=== PATIENT | male | born 1960 | race Caucasian/White ===

== ENCOUNTER 2019-07-30 10:04 | Day surgery (SDC) | payer OTHER ==
[2019-07-26 08:39] VITALS: BMI 28.1
[2019-07-30] MEDS ORDERED: PROPOFOL 20 ML ONE ×2 (11:50→13:12)
[2019-07-30] MEDS ORDERED: MIDAZOLAM HCL 2 MG/2 ML SINGLE DOSE VIAL ONE ×2 (11:50)
[2019-07-30] MEDS ORDERED: DEXAMETHASONE SOD PHOSPHATE 4 MG/1 ML VIAL ONE (12:41)
[2019-07-30] MEDS ORDERED: ONDANSETRON 4 MG/2 ML VIAL ONE (12:41)
[2019-07-30] MEDS ORDERED: ceFAZolin SODIUM 1 GM VIAL ONE (12:41)
[2019-07-30] MEDS ORDERED: KETOROLAC TROMETHAMINE 30 MG/1 ML VIAL ONE (12:41)
--- NOTE | 2019-07-30 13:26 | PN ---
Progress Note (short form) - Note Progress Note: 59M s/p left open carpal tunnel release POD #0. -Pain control. -Incentive spirometry. -NWB LUE. -Keep dressing clean & dry. -Vicodin, Duexis ordered to pharmacy for analgesia. -Elevate wrist/hand above level of heart. -Discharge home: f/u [facility] [place] [facility] Fri08/06/2019; call for appointment: . Diomedes Hall MD (Orthopaedic Surgery).
--- NOTE | 2019-07-30 13:28 | OP ---
Operative Note - Note: Operative Date: 07/30/19 Pre-Operative Diagnosis: Left carpal tunnel syndrome Operation: Left open carpal tunnel release Findings: Tourniqet Pressure: 300mmHg Tourniqet Time: 22 minutes Post-Operative Diagnosis: Same as Pre-op Surgeon: Diomedes Hall Cad Drafter: Chico Hall Anesthesiologist/FARM RANCHER: Billy Sargent Anesthesia: General Estimated Blood Loss (mls): 0 Fluid Volume Replaced (mls): 500 (Crystalloid) Operative Report Dictated: Yes
--- NOTE | 2019-07-30 13:41 | OP ---
DATE OF OPERATION: DATE OF DICTATION: 07/30/2019 SURGEON: Diomedes Hall MD SENIOR TECHNICAL MANAGER: Chico Hall MD PREOPERATIVE DIAGNOSIS: Left carpal tunnel syndrome. POSTOPERATIVE DIAGNOSIS: Left carpal tunnel syndrome. SURGICAL PROCEDURE: Left carpal tunnel release. ANESTHESIA: General. ANTIBIOTICS: 2 g Kefzol. TOURNIQUET TIME: Approximately 15 minutes. OPERATION DETAILS: Patient correctly identified. Time-out was called. Left upper extremity was prepped, draped in the routine manner with Betadine scrub solution, wiped off with alcohol, DuraPrep applied. Patient positioned in the supine position. The limb was exsanguinated of blood using an Esmarch bandage. The tourniquet was set at 300 mmHg. Incision was made in the primary crease of the wrist to the level of the transverse wrist crease. Using to hold the skin apart, the dissection was sharply taken down through the palmar fascia to the transverse fibers of the flexor retinaculum. The flexor retinaculum was incised in the midsection using a 15 blade controlled down to the carpal tunnel. A Metzenbaum scissors was then used to continue the transection of the flexor retinaculum both distally and proximally so that it would allow finger to pass easily through the carpal tunnel into the forearm and distally into the midpalmar space. The wounds were thoroughly lavaged. The nerve was inspected. No complications. Closure; vertical mattress 3-0 nylon sutures, light, wooly bandage applied. Operation did well. Patient will be discharged home today. MD BETH Laird/[id number]
[2019-07-30] MEDS ORDERED: PROMETHAZINE HCL 25 MG/1 ML VIAL IVPUSH PRN (14:09)
[2019-07-30] MEDS ORDERED: ONDANSETRON 4 MG/2 ML VIAL IVPUSH PRN (14:09)
[2019-07-30] MEDS ORDERED: oxyCODONE HCL 5 MG TABLET PO PRN ×2 (14:09)
[2019-07-30 14:55] VITALS: BP 112/70; PULSE 70; TEMP 97.9
== END 2019-07-30 14:55 | disposition home or self-care (01) ==
LOC: FASU 10:04
PROVIDERS: ATTEND Orthopaedic Surgery Orthopaedic Surgery of the Spine
PROC: 01N50ZZ Release Median Nerve, Open Approach (ICD-10-PCS; principal; 2019-07-30 13:03)
DX: G56.02 Carpal tunnel syndrome, left upper limb (principal)
CPT/HCPCS: 94760

== ENCOUNTER 2020-07-12 06:19 | Day surgery (SDC) | payer OTHER ==
[2020-07-10 19:05] VITALS: BMI 29.1
[2020-07-12] MEDS ORDERED: BENZOIN/ALOE VERA/STORAX/TOLU 58 ML BOTTLE ONE (07:15)
[2020-07-12] MEDS ORDERED: LIDOCAINE HCL 2% (20ML MULTI-DOSE VIAL) ONE (07:16)
[2020-07-12] MEDS ORDERED: MIDAZOLAM HCL 2 MG/2 ML SINGLE DOSE VIAL ONE ×2 (07:45)
[2020-07-12] MEDS ORDERED: SUCCINYLCHOLINE CHLORIDE 200 MG/10 ML SYRINGE ONE (07:45)
[2020-07-12] MEDS ORDERED: PROPOFOL 20 ML ONE (07:45)
[2020-07-12] MEDS ORDERED: oxyCODONE HCL 5 MG TABLET PO PRN (08:48)
[2020-07-12] MEDS ORDERED: PROMETHAZINE HCL 25 MG/1 ML VIAL IVPUSH PRN (08:48)
[2020-07-12] MEDS ORDERED: ONDANSETRON 4 MG/2 ML VIAL IVPUSH PRN (08:48)
[2020-07-12] MEDS ORDERED: LACTATED RINGERS SOLUTION 1,000 ML IV SCH (09:00)
[2020-07-12 09:43] VITALS: TEMP 97.8
[2020-07-12] MEDS ORDERED: ASPIRIN COATED 81 MG TABLET.EC PO SCH (10:00)
[2020-07-12 10:07] VITALS: BP 135/80; PULSE 64
== END 2020-07-12 10:15 | disposition home or self-care (01) ==
LOC: FASU 06:19
PROVIDERS: ATTEND Orthopaedic Surgery Orthopaedic Surgery of the Spine
PROC: 01N50ZZ Release Median Nerve, Open Approach (ICD-10-PCS; principal; 2020-07-12 08:00)
DX: G56.01 Carpal tunnel syndrome, right upper limb (principal)
CPT/HCPCS: 94760